=== PATIENT | female | born 1950 | race Caucasian/White ===

== ENCOUNTER 2021-12-19 00:23 | Inpatient (IN) | payer MEDICARE, OTHER ==
[~2021-12-19] VITALS: Ht 157.5 cm; Wt 98.4 kg
[2021-12-20 03:11] LABS: HEMOGLOBIN 13.3 gm/dl (12.3-15.3); RED BLOOD COUNT 4.33 M/UL (4.00-5.10); WHITE BLOOD COUNT 17.9 K/UL (4.5-11.0)
[2021-12-20] MEDS ORDERED: LOSARTAN POTASS25 MG PO (12:03)
[2021-12-20] MEDS ORDERED: GABAPENTIN600 MG PO (12:03)
[2021-12-20] MEDS ORDERED: CLONIDINE HCL0.3 MG PO (12:13)
[2021-12-20] MEDS ORDERED: HYDRALAZINE HC100 MG PO (12:13)
[2021-12-20] MEDS ORDERED: METOPROLOL TART25 MG PO (12:14)
[2021-12-20] MEDS ORDERED: SERTRALINE HCL25 MG PO (12:14)
[2021-12-20] MEDS ORDERED: PROTONIX40 MG PO (12:14)
[2021-12-21 05:26] LABS: HEMOGLOBIN 12.6 gm/dl (12.3-15.3); RED BLOOD COUNT 4.16 M/UL (4.00-5.10); WHITE BLOOD COUNT 21.4 K/UL (4.5-11.0)
[2021-12-21] MEDS ORDERED: LASIX20 MG PO (18:30)
[2021-12-22 03:10] LABS: HEMOGLOBIN 11.8 gm/dl (12.3-15.3); RED BLOOD COUNT 3.86 M/UL (4.00-5.10); WHITE BLOOD COUNT 17.7 K/UL (4.5-11.0)
[2021-12-22 03:42] LABS: BUN/CREATININE RATIO 21 (0-10)
[2021-12-23 01:52] LABS: HEMOGLOBIN 11.5 gm/dl (12.3-15.3); RED BLOOD COUNT 3.74 M/UL (4.00-5.10)
[2021-12-23 01:53] LABS: WHITE BLOOD COUNT 12.4 K/UL (4.5-11.0)
[2021-12-24 03:19] LABS: HEMOGLOBIN 11.2 gm/dl (12.3-15.3); RED BLOOD COUNT 3.7 M/UL (4.00-5.10); WHITE BLOOD COUNT 10.4 K/UL (4.5-11.0)
[2021-12-25 09:14] LABS: CREATININE, URINE 122.8 mg/dL (Not Estab.)
[2021-12-26 02:27] LABS: HEMOGLOBIN 10.6 gm/dl (12.3-15.3); RED BLOOD COUNT 3.46 M/UL (4.00-5.10); WHITE BLOOD COUNT 9.4 K/UL (4.5-11.0)
[2021-12-27 02:27] LABS: HEMOGLOBIN 10.9 gm/dl (12.3-15.3); RED BLOOD COUNT 3.56 M/UL (4.00-5.10); WHITE BLOOD COUNT 11.4 K/UL (4.5-11.0)
[2021-12-28 02:12] LABS: HEMOGLOBIN 10.6 gm/dl (12.3-15.3); RED BLOOD COUNT 3.49 M/UL (4.00-5.10); WHITE BLOOD COUNT 12.4 K/UL (4.5-11.0)
[2021-12-30 02:38] LABS: HEMOGLOBIN 10.8 gm/dl (12.3-15.3); RED BLOOD COUNT 3.47 M/UL (4.00-5.10); WHITE BLOOD COUNT 10.5 K/UL (4.5-11.0)
[2021-12-30] MEDS ORDERED: GABAPENTIN300 MG PO (13:21)
[2021-12-30] MEDS ORDERED: ATORVASTATIN CA20 MG PO (13:21)
[2021-12-30] MEDS ORDERED: BUMETANIDE1 MG PO (13:21)
[2021-12-30] MEDS ORDERED: CLOPIDOGREL75 MG PO (13:21)
[2021-12-30] MEDS ORDERED: METOPROLOL SUCC50 MG PO (13:21)
[2021-12-30] MEDS ORDERED: ASPIRIN EC81 MG PO (13:21)
[2021-12-30] MEDS ORDERED: NOVOLOG MI100 UNIT/1 SC (13:38)
--- NOTE | 2021-12-30 15:24 | NUR ---
REPORT CALLED TO [facility].
== END 2021-12-30 17:26 | DRG 280 ==
LOC: PROG CARE 00:23
PROVIDERS: Internal Medicine; Internal Medicine Infectious Disease; Internal Medicine Nephrology; Nurse Practitioner; ADMIT Internal Medicine
PROC: B24BZZZ Ultrasonography of Heart with Aorta (ICD-10-PCS; principal; 2021-12-20)
DX: I21.4 Non-ST elevation (NSTEMI) myocardial infarction (principal); G93.41 Metabolic encephalopathy; Z20.822 Contact with and (suspected) exposure to COVID-19; I63.89 Other cerebral infarction; J18.9 Pneumonia, unspecified organism; I50.43 Acute on chronic combined systolic (congestive) and diastolic (congestive) heart failure; N18.4 Chronic kidney disease, stage 4 (severe); I13.0 Hypertensive heart and chronic kidney disease with heart failure and stage 1 through stage 4 chronic kidney disease, or unspecified chronic kidney disease; N17.9 Acute kidney failure, unspecified; I31.3 Pericardial effusion (noninflammatory); E87.2 Acidosis; E86.0 Dehydration; F03.90 Unspecified dementia, unspecified severity, without behavioral disturbance, psychotic disturbance, mood disturbance, and anxiety; L89.151 Pressure ulcer of sacral region, stage 1; I08.1 Rheumatic disorders of both mitral and tricuspid valves; L89.312 Pressure ulcer of right buttock, stage 2; L89.892 Pressure ulcer of other site, stage 2; I27.20 Pulmonary hypertension, unspecified; D63.1 Anemia in chronic kidney disease; E11.22 Type 2 diabetes mellitus with diabetic chronic kidney disease; E03.9 Hypothyroidism, unspecified; I25.5 Ischemic cardiomyopathy; R53.81 Other malaise; Z79.82 Long term (current) use of aspirin; Z74.01 Bed confinement status
CPT/HCPCS: ECHO; 36415; 70551; 71045; 80048; 80053; 80061; 81001; 82043; 82550; 82553; 82570; 82607; 82728; 82962; 83036; 83540; 83550; 83605; 83735; 83880; 84100; 84156; 84443; 84484; 85025; 85610; 85730; 86140; 87040; 87086; 92610; 93005; 93306; 93880; 97110; 97110-GP-CQ; 97116-GP-CQ; 97161; 97166; 97530; 97530-GP-CQ; 97535; A6212; J0696; J1205; J1644; J1940; J2405; J3475; P9047

== ENCOUNTER → 2022-03-17 | Outpatient (CLI) | payer MEDICARE, OTHER ==
[~2022-03-17] MED LIST: ASPIRIN EC81 MG PO; ATORVASTATIN CA20 MG PO; BUMETANIDE1 MG PO; CLONIDINE HCL0.3 MG PO; CLOPIDOGREL75 MG PO; GABAPENTIN300 MG PO; GABAPENTIN600 MG PO; HYDRALAZINE HC100 MG PO; LASIX20 MG PO; LOSARTAN POTASS25 MG PO; METOPROLOL SUCC50 MG PO; METOPROLOL TART25 MG PO; NOVOLOG MI100 UNIT/1 SC; PROTONIX40 MG PO; SERTRALINE HCL25 MG PO
== END ==
LOC: ECHO 03-11 11:15
DX: I11.0 Hypertensive heart disease with heart failure (principal); I50.9 Heart failure, unspecified
CPT/HCPCS: ECHO; 93306